=== PATIENT | female | born 1975 | race Caucasian/White ===

== ENCOUNTER → 2024-03-26 14:01 | Outpatient (REF) | payer BC, SELFPAY | LOC: HWRAD 14:01 | PROVIDERS: ATTENDING PHYSICIAN Nurse Practitioner Family | DX: R13.10 Dysphagia, unspecified (principal); R76.8 Other specified abnormal immunological findings in serum | CPT/HCPCS: 76536 ==

== ENCOUNTER → 2024-04-24 08:24 | Outpatient (REF) | payer BC, SELFPAY | LOC: RAD 08:24 | PROVIDERS: ATTENDING PHYSICIAN Obstetrics & Gynecology; FAMILY PHYSICIAN Nurse Practitioner Family | DX: E28.319 Asymptomatic premature menopause (principal); N91.2 Amenorrhea, unspecified; E28.39 Other primary ovarian failure; Z12.4 Encounter for screening for malignant neoplasm of cervix | CPT/HCPCS: 77080 ==

== ENCOUNTER → 2024-05-13 17:17 | Outpatient (REF) | payer BC, SELFPAY | LOC: MRI 17:17 | PROVIDERS: ATTENDING PHYSICIAN Psychiatry & Neurology Neurology; FAMILY PHYSICIAN Nurse Practitioner Family | DX: G51.31 Clonic hemifacial spasm, right (principal) | CPT/HCPCS: 70553; A9575 ==

== ENCOUNTER → 2024-10-19 17:37 | Outpatient (REF) | payer BC, SELFPAY | LOC: WDC 17:37 | PROVIDERS: ATTENDING PHYSICIAN Obstetrics & Gynecology; FAMILY PHYSICIAN Nurse Practitioner Family | DX: Z12.31 Encounter for screening mammogram for malignant neoplasm of breast (principal) | CPT/HCPCS: 77063; 77067 ==

== ENCOUNTER → 2024-12-15 11:37 | Outpatient (REF) | payer BC, SELFPAY | LOC: HWRAD 11:37 | PROVIDERS: ATTENDING PHYSICIAN Nurse Practitioner Family | DX: R00.2 Palpitations (principal); I44.0 Atrioventricular block, first degree | CPT/HCPCS: 71046 ==

== ENCOUNTER → 2024-12-22 08:24 | Outpatient (REF) | payer BC, SELFPAY | LOC: RCS 08:24 | PROVIDERS: ATTENDING PHYSICIAN Nurse Practitioner Family | DX: R00.2 Palpitations (principal); I44.0 Atrioventricular block, first degree | CPT/HCPCS: 93225; 93226 ==

== ENCOUNTER → 2025-01-05 09:55 | Outpatient (REF) | payer BC, SELFPAY | LOC: HWRCS 09:55 | PROVIDERS: ATTENDING PHYSICIAN Nurse Practitioner Family | DX: R00.2 Palpitations (principal); I44.0 Atrioventricular block, first degree | CPT/HCPCS: 93306 ==

== ENCOUNTER → 2025-10-20 17:32 | Outpatient (REF) | payer BC, SELFPAY | LOC: WDC 17:32 | PROVIDERS: ATTENDING PHYSICIAN Obstetrics & Gynecology; FAMILY PHYSICIAN Nurse Practitioner Family | DX: Z12.31 Encounter for screening mammogram for malignant neoplasm of breast (principal) | CPT/HCPCS: 77063; 77067 ==